=== PATIENT | female | born 1960 | race Caucasian/White ===

== ENCOUNTER 2016-10-01 09:33 | Emergency (ER) | payer BC ==
[~2016-10-01] VITALS: Ht 170.2 cm; Wt 63.5 kg
[2016-10-01 09:55] VITALS: BP 133/64
[2016-10-01] MEDS ORDERED: cefTRIAXone 1GM/50ML D5W 50 ML IV ONE (10:15)
[2016-10-01] MEDS ORDERED: TETANUS-DIPTH-ACEL PERTUSSIS 0.5ML SYRG IM ONE (10:15)
[2016-10-01] MEDS ORDERED: LIDOCAINE 1% HCL (LOCAL ANESTH.) INJ 20ML MDV IJ ONE (10:15)
[2016-10-01] MEDS ORDERED: BACITRACIN TOP OINT 1 UD PKG TOP ONE (10:15)
[2016-10-01] MEDS ORDERED: cefTRIAXone SOD 1,000 MG VL IM ONE (10:30)
== END 2016-10-01 10:49 | disposition home or self-care (01) ==
LOC: ER 09:39
DX: S81.811A Laceration without foreign body, right lower leg, initial encounter (principal); W55.41XA Bitten by pig, initial encounter; Y93.89 Activity, other specified; Y99.8 Other external cause status; Y92.89 Other specified places as the place of occurrence of the external cause
CPT/HCPCS: 12004; 90471; 90715; 96372; 99284; J0696; J2001